=== PATIENT | female | born 1960 | race Hispanic/Latino ===

== ENCOUNTER 2018-09-02 15:49 | Inpatient (IN) | payer BC ==
[2018-09-02 17:58] LABS: BASO % 0.1 % (0.0-2.0); LYMPH # 0.6 K/uL (1.0-4.3); LYMPH % 3.6 % (20.0-40.0); MEAN CELL VOLUME 90.3 fL (81.0-99.0); MEAN CORPUSCULAR HGB CONC 34.3 g/dL (33.0-37.0); MEAN PLATELET VOLUME 10.2 fL (7.2-11.7); MONO # 0.9 K/uL (0.0-0.8); MONO % 5.6 % (0.0-10.0); NEUT # 14.3 K/uL (1.8-7.0); NEUT % 90.7 % (50.0-75.0); PLATELET COUNT 328 K/uL (130-400); RBC 3.86 Mil/uL (3.80-5.20); RED CELL DISTRIBUTION WIDTH 13.3 % (11.5-14.5); WHITE BLOOD COUNT 15.8 K/uL (4.8-10.8)
[2018-09-02] MEDS ORDERED: Sodium Chloride 0.9% 1,000 ML ONE ×2 (18:13→22:08)
[2018-09-02] MEDS: Sodium Chloride 0.9% 1,000 ML IV SCH (18:20)
[2018-09-02 18:24] LABS: LYMPHOCYTE 4 % (20-40); MONOCYTE 3 % (0-10); NEUTROPHIL 93 % (50-75); PLATELET ESTIMATE NORMAL (NORMAL); TOTAL CELLS COUNTED 100
[2018-09-02 18:35] LABS: ALB/GLOB RATIO 1.3 (1.0-2.1); ALBUMIN 4.2 g/dL (3.5-5.0); CALCIUM 9.5 mg/dl (8.6-10.4)
[2018-09-02] MEDS ORDERED: Calcium Gluconate 4.65 mEq/10 ml Inj IVP STA (18:43)
[2018-09-02] MEDS ORDERED: Sod Polystyrene Sulf 15 gm/60 ml Susp PO STA (18:43)
[2018-09-02] MEDS ORDERED: Sodium Bicarbonate (8.4%) 50 Meq Syringe IVP STA ×2 (18:43→18:47)
[2018-09-02] MEDS ORDERED: Sodium Chloride 0.9% 1,000 ML IV ONE (19:02)
[2018-09-02] MEDS ORDERED: Sodium Bicarbonate (8.4%) 50 Meq Syringe ONE (19:13)
[2018-09-02] MEDS ORDERED: Calcium Gluconate 4.65 mEq/10 ml Inj ONE (19:13)
[2018-09-02 23:14] LABS: URINE BACTERIA OCC (<OCC); URINE BILIRUBIN NEGATIVE (NEGATIVE); URINE BLOOD 2+ (NEGATIVE); URINE CLARITY Hazy (Clear); URINE COLOR Red (YELLOW); URINE GLUCOSE (UA) NORMAL (Normal); URINE LEUKOCYTE ESTERASE 2+ Leu/uL (Negative); URINE PROTEIN 3+ mg/dL (NEGATIVE); URINE UROBILINOGEN NORMAL mg/dL (0.2-1.0)
--- NOTE | 2018-09-02 23:20 | C.PDOC ---
History Of Present Illness 58 year old female presents to the ED c/o generalized weakness for the past couple of weeks. Patient reports recently losing 5-7 pounds during that time. Patient states that after eating she tends to vomit 1-2 times after. Patient de nies fever, chills, cough, diarrhea, constipation, dysuria, hematuria. Chief Complaint (Nursing): Weakness/Neurological Deficit History Per: Patient History/Exam Limitations: no limitations Onset/Duration Of Symptoms: Days Current Symptoms Are (Timing): Still Present Associated Symptoms Preceding Syncopal Episode: No Predromal Symptoms (Sudden Onset) Seizure Or Post-ictal Symptoms: None Fall Associated With With Symptoms: No Severity: None Recent travel outside of the [place]: No Additional History Per: Patient Past Medical History Reviewed: Historical Data, Nursing Documentation, Vital Signs Vital Signs: Last Vital Signs Temp 98.0 F 09/02/18 22:46 Pulse 78 09/02/18 22:46 Resp 22 09/02/18 22:46 BP 96/58 L 09/02/18 22:46 Pulse Ox 98 09/02/18 22:46 - Medical History PMH: No Chronic Diseases Surgical History: No Surg Hx - [facility] Procedures CYSTOSCOPY NEC (01/06/05) RETROGRADE PYELOGRAM (01/06/05) TU DESTRUC BLADD LES NEC (06/05/05) Family History: States: Unknown Family Hx - Social History Hx Alcohol Use: No Hx Substance Use: No Review Of Systems Constitutional: Positive for: Weakness, Weight loss. Negative for: Fever, Chills Cardiovascular: Negative for: Chest Pain, Palpitations Respiratory: Negative for: Shortness of Breath Gastrointestinal: Positive for: Vomiting. Negative for: Nausea, Abdominal Pain Skin: Negative for: Rash Neurological: Negative for: Weakness, Numbness, Headache, Dizziness Physical Exam - Physical Exam Appears: Non-toxic, No Acute Distress, Other (thin) Skin: Normal Color, Warm, Dry Head: Atraumatic, Normacephalic Eye(s): bilateral: Normal Inspection Oral Mucosa: Moist Neck: Normal ROM, Supple Chest: Symmetrical Cardiovascular: Rhythm Regular Respiratory: Normal Breath Sounds, No Rales, No Rhonchi, No Wheezing Gastrointestinal/Abdominal: Soft, No Tenderness, No Guarding, No Rebound Extremity: Normal ROM, No Tenderness, No Swelling Neurological/Psych: Oriented x3, Normal Speech, Normal Cognition Gait: Steady ED Course And Treatment - Laboratory Results Result Diagrams: 09/02/18 17:53 09/02/18 17:53 ECG: Interpreted By Me, Viewed By Me ECG Rhythm: Sinus Rhythm Interpretation Of ECG: normal axis, normal intervals Rate From EC (BPM) O2 Sat by Pulse Oximetry: 98 (On RA) Pulse Ox Interpretation: Normal - CT Scan/US CT abd/pelvis Other Rad Studies (CT/US): Read By Radiologist, Radiology Report Reviewed CT/US Interpretation: CLINICAL HISTORY: Vomiting/weakness/weight loss. TECHNIQUE: Multiple axial, coronal, sagittal CT images were obtained through the abdomen and pelvis without administration of IV contrast material. Oral contrast material was administered. COMMENTS: The liver is of uniform attenuation without mass or defect. There is no intra or extrahepatic biliary ductal dilatation. The spleen is normal. The gallbladder is within normal limits. The pancreas is of normal contour and attenuation characteristics. There is no evidence of adrenal mass. Both kidneys are markedly lobulated. The right kidney is severely atrophic. Multiple parapelvic cysts are present in the right and left kidneys. There are areas of cortical thinning and scarring noted in the left kidney. There is a 6 x 4 mm calculus noted in the lower pole of the left kidney. There is no evidence for appendicitis. There is no bowel wall thickening. No evidence for small or large bowel obstruction. There is no evidence of abdominal ascites or lymphadenopathy. There is diffuse severe bladder wall thickening consistent with cystitis measuring up to 12 mm. Diffuse bladder wall calcifications are present. This may be due to chronic bladder infections. There is single bubble of air present within the urinary bladder, please exclude recent instrumentation as this may be due to infection. There is no pelvic ascites or lymphadenopathy. Uterine calcifications are present consistent with fibroids. Images of the lung bases show no evidence of pleural or parenchymal mass. There are no pleural effusions. Scarring is seen in the right middle lobe and lingula. Small hiatal hernia is seen. The bony structure s are free of lytic or blastic lesions. IMPRESSION: 1. Both kidneys are markedly lobulated. The right kidney is severely atrophic. Multiple parapelvic cysts in the right and left kidneys. Areas of cortical thinning and scarring in the left kidney. Calculus in the lower pole of the left kidney. 2. Cystitis with diffuse bladder wall calcifications present consistent with chronic bladder infections. There is single bubble of air present within the urinary bladder, please exclude recent instrumentation as this may be due to infection. 3. Uterine calcifications are present consistent with fibroids. . Electronically signed on Sep 02, 2018 9:36:29 PM EST by: Josiah Burris M.D., CHRIS Certified By [facility] & [facility]. Fellowship Trained MRI and CT Specialist Medical Decision Making Medical Decision Making: Plan: * CT abd/pelvis * EKG * Labs * Pepcid 20 mg IVP * Sodium bicarb 50 meq * Pepcid 20 mg IVP * Zofran 4 mg IVP * Kayexalate 30 gm PO * Urine culture * UA Upon receiving potassium level, medication for hyperkalemia was ordered STAT. Spoke with Dr. Gaytan patient's PMD reviewed the case. Patient will be admitted under Dr. Hair service Patient states she is feeling much better now. Disposition - Disposition Disposition: HOSPITALIZED Disposition Time: 21:00 Condition: GUARDED - Clinical Impression Clinical Impression: Hyperkalemia, Acute on chronic renal failure, Muscle weakness - Scribe Statement The provider has reviewed the documentation as recorded by the Scribe Tate Ramos All medical record entries made by the Scribe were at my direction and personally dictated by me. I have reviewed the chart and agree that the record accurately reflects my personal performance of the history, physical exam, medical decision making, and the department course for this patient. I have also personally directed, reviewed, and agree with the discharge instructions and disposition.
[2018-09-03] MEDS ORDERED: Sodium Chloride 0.9% 1,000 ML IV SCH (01:15)
[2018-09-03] MEDS: Sodium Chloride 0.9% 1,000 ML IV SCH (05:34)
[2018-09-03 08:23] LABS: MEAN CELL VOLUME 89.2 fL (81.0-99.0); MEAN CORPUSCULAR HGB CONC 34.8 g/dL (33.0-37.0); MEAN PLATELET VOLUME 9.8 fL (7.2-11.7); RBC 3.1 Mil/uL (3.80-5.20); RED CELL DISTRIBUTION WIDTH 13.6 % (11.5-14.5); WHITE BLOOD COUNT 11.5 K/uL (4.8-10.8)
[2018-09-03 08:35] LABS: CALCIUM 8.1 mg/dl (8.6-10.4)
[2018-09-03 08:39] LABS: HEMOGLOBIN 9.6 g/dL (11.0-16.0)
[2018-09-03] MEDS: Sodium Bicarbonate 8.4% 150 MEQ in Dextrose 5% In Water 850 ML IV SCH (10:12)
--- NOTE | 2018-09-03 10:27 | US ---
Date of service: 09/03/2018 PROCEDURE: Ultrasound of the Kidneys HISTORY: jen COMPARISON: None available. TECHNIQUE: Sonogram of the kidneys. FINDINGS: RIGHT KIDNEY: Measures: 6.5 x 2.7 x 2.7 cm. Echogenic renal parenchyma. No obstructing calculus or hydronephrosis identified. 1.0 x 1.0 x 1.2 cm midpole cyst. No obstructing calculus or hydronephrosis identified. LEFT KIDNEY: Measures: 8.9 x 4.8 x 4.4 cm. Echogenic renal parenchyma. No obstructing calculus or hydronephrosis identified. 2.4 x 2.2 x 2.0 cm midpole cyst. 0.5 cm midpole calculus. 0.7 x 0.8 x 0.7 cm lower pole cyst. OTHER FINDINGS: Valdez catheter within a decompressed urinary bladder. IMPRESSION: Echogenic renal parenchyma may be seen in the setting of medical renal disease. Bilateral renal cysts as above. 0.5 cm midpole left renal calculus. Valdez catheter within a decompressed urinary bladder.
--- NOTE | 2018-09-03 11:19 | CT ---
PROCEDURE: CT Abdomen and Pelvis without Oral or IV contrast. HISTORY: vomiting with weakness/weight loss COMPARISON: Renal ultrasound performed 09/03/18 TECHNIQUE: Contiguous axial images of the abdomen and pelvis. No oral or IV contrast administered. Coronal and Sagittal reformats generated and reviewed. Radiation dose: Total exam DLP = 206.86 mGy-cm. This CT exam was performed using one or more of the following dose reduction techniques: Automated exposure control, adjustment of the mA and/or kV according to patient size, and/or use of iterative reconstruction technique. FINDINGS: There is limited evaluation of the solid organs without the administration of IV contrast. LOWER THORAX: No visible consolidation, pleural effusion, or pneumothorax. LIVER: Mild hypoattenuation adjacent to the falciform ligament may reflect focal fat. GALLBLADDER AND BILE DUCTS: Unremarkable unenhanced appearance. PANCREAS: Unremarkable unenhanced appearance. SPLEEN: Unremarkable unenhanced appearance. ADRENALS: Unremarkable unenhanced appearance. KIDNEYS AND URETERS: Markedly lobulated bilateral kidneys. Atrophic right kidney. Multiple parapelvic cysts bilaterally. Cortical thinning/scarring of the left kidney. 6 x 4 mm calculus, left lower pole. No hydronephrosis or obstructing renal calculus. BLADDER: Severe diffuse and irregular urinary bladder wall thickening. Urinary bladder wall calcifications. Focus of air within the urinary bladder. REPRODUCTIVE: Uterine calcifications consistent with degenerating fibroids. APPENDIX: The appendix is not identified. No secondary signs of acute appendicitis. BOWEL: The stomach is nondistended. Lack of oral contrast limits evaluation for bowel pathology. The bowel loops appear within normal limits of caliber without evidence of intestinal obstruction. PERITONEUM: No significant free fluid. No definite free air. LYMPH NODES: No bulky lymphadenopathy identified. VASCULATURE: Atherosclerotic calcification of the aorta. No aortic aneurysm. BONES: No acute osseous abnormality is detected. OTHER FINDINGS: None. IMPRESSION: Irregular markedly thickened urinary bladder raises suspicion for cystitis. Correlate with urinalysis. Focus of air within the urinary bladder may be due to infection or recent instrumentation. Diffuse bladder wall calcifications; correlate for history of chronic urinary bladder infections. Markedly lobulated bilateral renal contours. Severely atrophic right kidney. Multiple cysts bilateral kidneys. Regions of cortical thinning/scarring of the left kidney. Nonobstructing left lower pole calculus. No hydronephrosis. Uterine calcifications consistent with degenerating fibroids. Preliminary impression was provided by [employer]
[2018-09-03 13:59] LABS: HEMOGLOBIN 8.5 g/dL (11.0-16.0)
--- NOTE | 2018-09-03 19:09 | CP.PCM.CON ---
History of Present Illness - History of Present Illness History of Present Illness: pt is seen and examined, full consult is dictated #[id number] 1. Dominic on ckd-3 2. hyperkalemia 3. met. acidois 4. Microscopic hematuria 5. atrophic rt kidney 6. b/l renal cysts c/w ivf d5w with 150 meq nahco3 at 70 ml/hr checck urine c/s, urine for cytology may need renal scan for evaluation of rt kidney fx Past Patient History - Past Medical History & Family History Past Medical History?: Yes - Past Social History Smoking Status: Never Smoked - CARDIAC Hx Cardiac Disorders: No - PULMONARY Hx Pneumonia: Yes - NEUROLOGICAL Hx Neurological Disorder: No - HEENT Hx Sinusitis: Yes - RENAL Hx Chronic Kidney Disease: No - ENDOCRINE/METABOLIC Hx Hyperthyroidism: Yes - HEMATOLOGICAL/ONCOLOGICAL Hx Blood Disorders: No - INTEGUMENTARY Hx Dermatological Problems: No - MUSCULOSKELETAL/RHEUMATOLOGICAL Hx Arthritis: Yes Hx Falls: Yes - GASTROINTESTINAL Hx Vomiting: Yes - GENITOURINARY/GYNECOLOGICAL Hx Urinary Tract Infection: Yes - PSYCHIATRIC Hx Substance Use: No - SURGICAL HISTORY Hx Surgeries: Yes Other/Comment: Pinky Richter, 2005 - ANESTHESIA Hx Anesthesia: Yes Hx Anesthesia Reactions: No Hx Malignant Hyperthermia: No Has any member of the family had a problem w/ anesthesia?: No Meds Allergies/Adverse Reactions: Allergies Allergy/AdvReac Type Severity Reaction Status Date / Time No Known Allergies Allergy Verified 09/02/18 16:17 - Medications Medications: Current Medications Famotidine (Pepcid) 20 mg IVP DAILY [facility] Last Admin: 09/03/18 10:12 Dose: 20 mg Heparin Sodium (Porcine) (Heparin) 5,000 units SC Q8 [facility] Last Admin: 09/03/18 14:36 Dose: Not Given Ceftriaxone Sodium 1 gm/ (Sodium Chloride) 100 mls @ 100 mls/hr IVPB DAILY [facility]; Protocol Last Admin: 09/03/18 10:12 Dose: 100 mls/hr Sodium Bicarbonate 150 meq/ (Dextrose) 1,000 mls @ 70 mls/hr IV .[id number] [facility] Last Admin: 09/03/18 10:12 Dose: 70 mls/hr Results - Vital Signs Recent Vital Signs: Last Vital Signs Temp 97.9 F 09/03/18 15:20 Pulse 71 09/03/18 16:00 Resp 20 09/03/18 15:20 BP 94/61 L 09/03/18 15:20 Pulse Ox 99 09/03/18 15:20 - Labs Result Diagrams: 09/03/18 13:51 09/03/18 08:17 Labs: Laboratory Results - last 24 hr 09/02/18 09/02/18 09/03/18 18:47 22:00 02:27 WBC RBC Hgb Hct MCV MCH MCHC RDW Plt Count MPV Sodium Potassium Chloride Carbon Dioxide Anion Gap BUN Creatinine Est GFR ( Amer) Est GFR (Non-Af Amer) Random Glucose Calcium Troponin I 0.0170 Urine Color Red Urine Clarity Hazy Urine pH 9.0 Ur Specific [place] 1.017 Urine Protein 3+ H Urine Glucose (UA) Normal Urine Ketones Negative Urine Blood 2+ H Urine Nitrate Negative Urine Bilirubin Negative Urine Urobilinogen Normal Ur Leukocyte Esterase 2+ H Urine WBC (Auto) 62 H Urine RBC (Auto) 1862 H Urine Bacteria Occ H Ur Random Sodium Urine Calcium < 1.0 09/03/18 09/03/18 09/03/18 02:27 08:17 08:17 WBC 11.5 H RBC 3.10 L Hgb 9.6 L D Hct 27.7 L MCV 89.2 MCH 31.0 MCHC 34.8 RDW 13.6 Plt Count 228 D MPV 9.8 Sodium 132 Potassium 4.7 Chloride 102 Carbon Dioxide 18 L Anion Gap 16 BUN 94 H Creatinine 3.5 H Est GFR ( Amer) 16 Est GFR (Non-Af Amer) 13 Random Glucose 103 Calcium 8.1 L Troponin I Urine Color Urine Clarity Urine pH Ur Specific [place] Urine Protein Urine Glucose (UA) Urine Ketones Urine Blood Urine Nitrate Urine Bilirubin Urine Urobilinogen Ur Leukocyte Esterase Urine WBC (Auto) Urine RBC (Auto) Urine Bacteria Ur Random Sodium 73 Urine Calcium 09/03/18 13:51 WBC RBC Hgb 8.5 L Hct 25.1 L MCV MCH MCHC RDW Plt Count MPV Sodium Potassium Chloride Carbon Dioxide Anion Gap BUN Creatinine Est GFR ( Amer) Est GFR (Non-Af Amer) Random Glucose Calcium Troponin I Urine Color Urine Clarity Urine pH Ur Specific [place] Urine Protein Urine Glucose (UA) Urine Ketones Urine Blood Urine Nitrate Urine Bilirubin Urine Urobilinogen Ur Leukocyte Esterase Urine WBC (Auto) Urine RBC (Auto) Urine Bacteria Ur Random Sodium Urine Calcium
--- NOTE | 2018-09-03 20:08 | CARD ---
APPROVED REPORT Date of service: 09/02/2018 EKG Measurement Heart [id number] <Conclusion> Normal sinus rhythm Normal ECG
--- NOTE | 2018-09-03 23:53 | CP.PCM.HP ---
Past Patient History - Past Medical History & Family History Past Medical History?: Yes - Past Social History Smoking Status: Never Smoked - CARDIAC Hx Cardiac Disorders: No - PULMONARY Hx Pneumonia: Yes - NEUROLOGICAL Hx Neurological Disorder: No - HEENT Hx Sinusitis: Yes - RENAL Hx Chronic Kidney Disease: No - ENDOCRINE/METABOLIC Hx Hyperthyroidism: Yes - HEMATOLOGICAL/ONCOLOGICAL Hx Blood Disorders: No - INTEGUMENTARY Hx Dermatological Problems: No - MUSCULOSKELETAL/RHEUMATOLOGICAL Hx Arthritis: Yes Hx Falls: Yes - GASTROINTESTINAL Hx Vomiting: Yes - GENITOURINARY/GYNECOLOGICAL Hx Urinary Tract Infection: Yes - PSYCHIATRIC Hx Substance Use: No - SURGICAL HISTORY Hx Surgeries: Yes Other/Comment: Bladder Rober, 2005 - ANESTHESIA Hx Anesthesia: Yes Hx Anesthesia Reactions: No Hx Malignant Hyperthermia: No Has any member of the family had a problem w/ anesthesia?: No Meds Allergies/Adverse Reactions: Allergies Allergy/AdvReac Type Severity Reaction Status Date / Time No Known Allergies Allergy Verified 09/02/18 16:17 Results - Vital Signs Recent Vital Signs: Last Vital Signs Temp 97.9 F 09/03/18 15:20 Pulse 71 09/03/18 16:00 Resp 20 09/03/18 15:20 BP 94/61 L 09/03/18 15:20 Pulse Ox 99 09/03/18 15:20 - Labs Result Diagrams: 09/03/18 13:51 09/03/18 08:17 Labs: Laboratory Results - last 24 hr 09/03/18 09/03/18 09/03/18 02:27 02:27 08:17 WBC 11.5 H RBC 3.10 L Hgb 9.6 L D Hct 27.7 L MCV 89.2 MCH 31.0 MCHC 34.8 RDW 13.6 Plt Count 228 D MPV 9.8 Sodium Potassium Chloride Carbon Dioxide Anion Gap BUN Creatinine Est GFR ( Amer) Est GFR (Non-Af Amer) Random Glucose Calcium Ur Random Sodium 73 Urine Calcium < 1.0 09/03/18 09/03/18 08:17 13:51 WBC RBC Hgb 8.5 L Hct 25.1 L MCV MCH MCHC RDW Plt Count MPV Sodium 132 Potassium 4.7 Chloride 102 Carbon Dioxide 18 L Anion Gap 16 BUN 94 H Creatinine 3.5 H Est GFR ( Amer) 16 Est GFR (Non-Af Amer) 13 Random Glucose 103 Calcium 8.1 L Ur Random Sodium Urine Calcium
[2018-09-04] MEDS: Sodium Bicarbonate 8.4% 150 MEQ in Dextrose 5% In Water 850 ML IV SCH ×2 (03:19→16:30)
--- NOTE | 2018-09-04 05:40 | CON ---
DATE: 09/03/2018 LOCATION: The patient is located in room 657, bed B. REQUESTED BY: Garry Hair MD REASON FOR RENAL CONSULTATION: Acute renal failure, chronic kidney disease stage III, hyperkalemia, metabolic acidosis and possible UTI. HISTORY OF PRESENT ILLNESS: Mrs. Michaels is a 58-year-old elderly, very thin built female with a past medical history significant for bladder surgery long time ago, chronic kidney disease, who was admitted with chief complaints of dysuria and frequency for about 2-3 weeks and denies any fever. The patient has complaints of nausea, vomiting and decreased p.o. intake for about 1 week. Denies any abdominal pain. Denies any chest pain or palpitation. Denies any headache, dizziness. The patient has complaints of decreased p.o. intake and associated with also nausea and vomiting. PAST MEDICAL HISTORY: Significant for bladder surgery long time ago, chronic kidney disease, and questionable UTI in the past. PAST SURGICAL HISTORY: Bladder surgery, negative for hypertension, negative for diabetes, coronary artery disease, hyperlipidemia. ALLERGIES: NO KNOWN DRUG ALLERGIES. SOCIAL HISTORY: Denies any smoking, alcohol, or drugs. PERSONAL HISTORY: She is single. No children and she lives alone. FAMILY HISTORY: Both parents have long time ago and she has one sister and one brother. REVIEW OF SYSTEMS: Significant for dysuria, frequency, nausea, vomiting and decreased p.o. intake for about 1 week. All other review of systems are reviewed and are negative. PHYSICAL EXAMINATION: VITAL SIGNS: As follows: Blood pressure 94/61, pulse 76, respirations 20, temperature 97.9 and saturation 99%. Height 5 feet and weight is 105 pounds. GENERAL: Mrs. Michaels is a 58-year-old elderly very thin built female, not in acute distress. HEENT: Pupils are normal and reactive to light and accommodation. Conjunctivae pink. Sclerae are anicteric. Tongue is dry and trachea is midline. No thyroid enlargement. LUNGS: Symmetric on both sides. Bilateral breath sounds present. Clear to auscultation. CARDIOVASCULAR SYSTEM: [place] at the fifth intercostal space, midclavicular line. S1 and S2 audible. No murmur or gallop. ABDOMEN: Normal in appearance, soft, tympanic. No guarding. No rigidity. No hepatosplenomegaly. CENTRAL NERVOUS SYSTEM: The patient is alert, awake, oriented x2-3. Sensory and motor system is grossly within normal limits. Cranial nerves II-XII grossly intact. EXTREMITIES: No cyanosis, no clubbing, no edema. The patient has a Valdez catheter with cloudy urine, lot of sediment. LABORATORY DATA: Include as follows, as of 09/02/2018, WBC 15.8, hemoglobin 12 and hematocrit is 34.9, platelets 328. Sodium 124, potassium 6.3, chloride 93, CO2 of 12, BUN 103, creatinine 4.8, glucose 137, calcium 9.5. Total bilirubin 0.6, AST 22, ALT 21, alkaline phosphatase 72, total protein 7.4, albumin 4.2, troponin 0.017 and lipase is 1820. Urinalysis, color red and hazy, PH 9, specific gravity 1.017, protein 3+, glucose normal, ketones negative, blood 2+ and nitrites negative, bilirubin negative, urobilinogen normal, leukocyte esterase 2+, wbc 62, rbc 1862, bacteria occasional, urine sodium is 73, and urine calcium is less than 1. Repeat BMP as of 09/03/2018, sodium 132, potassium 4.7, chloride 102, CO2 18, BUN 94, creatinine 3.5, glucose 103, calcium 8.1. Other laboratory data, urine culture report is pending, and ultrasound of the kidneys, the right kidney measures 6.5 x 2.7 x 2.7, echogenic renal parenchyma, nonobstructing calculus or hydronephrosis identified. No obstructing calculus or hydronephrosis identified, a 1 x 1 x 1 cm mid pole cyst. Left kidney measures 8.9 x 4.8 x 4.4 cm, echogenic renal parenchyma, no obstructing calculus or hydronephrosis identified, a 2.4 x 2.2 x 2 cm mid pole cyst and also 0.5 cm mid pole calculus and 0.7 x 0.8 x 0.[address] of the abdomen and pelvis as of 09/02/2018, impression, irregularly markedly thickened urinary bladder raises suspicion for the cholecystitis correlated with urinalysis, focus of air within the urinary bladder maybe due to infection, recent instrumentation diffuse bladder wall calcifications correlate for a history of chronic urinary bladder infections, markedly lobulated bilateral renal contours, severely atrophic right kidney and multiple system bilateral kidneys, regions of cortical thinning and scarring of the left kidney, nonobstructing left lower pole calculus, no hydronephrosis. Uterine calcifications consistent with degenerative fibroids. ASSESSMENT: In summary, Mrs. Michaels is a 58-year-old elderly female with recurrent UTIs, was admitted with hematuria, dysuria, frequency, nausea, vomiting for about 1 week, decreased p.o. intake and increased BUN and creatinine with a baseline creatinine about 1.3 on 07/26/2018 with atrophic right kidney. 1. Renal failure, acute on chronic kidney disease stage III. 2. Rule out urosepsis. 3. Metabolic acidosis secondary to acute renal failure. 4. Status post hyperkalemia secondary to renal failure and metabolic acidosis. 5. Atrophic right kidney. 6. Bilateral renal cyst. 7. Nephrolithiasis on the left side. PLAN: Status post Valdez catheter placement this morning and continue IV fluids D5W with sodium bicarbonate 150 mEq at 70 cc/hour and continue monitor BMP. Continue antibiotics, Rocephin and follow up blood culture, urine culture reports. Continue strict INRs. We will follow with you. Thank you for allowing me to participate in your patient's care. Chantal Shelley MD
[2018-09-04 09:02] LABS: BASO % 0.1 % (0.0-2.0); EOS % 0.3 % (0.0-4.0); HEMOGLOBIN 9.2 g/dL (11.0-16.0); LYMPH # 0.6 K/uL (1.0-4.3); MEAN CELL VOLUME 89.5 fL (81.0-99.0); MEAN CORPUSCULAR HEMOGLOBIN 31.2 pg (27.0-31.0); MEAN CORPUSCULAR HGB CONC 34.8 g/dL (33.0-37.0); MEAN PLATELET VOLUME 9.8 fL (7.2-11.7); MONO # 0.7 K/uL (0.0-0.8); MONO % 7.3 % (0.0-10.0); NEUT # 8.2 K/uL (1.8-7.0); NEUT % 86.3 % (50.0-75.0); PLATELET COUNT 188 K/uL (130-400); RBC 2.95 Mil/uL (3.80-5.20); RED CELL DISTRIBUTION WIDTH 13.7 % (11.5-14.5); WHITE BLOOD COUNT 9.5 K/uL (4.8-10.8)
[2018-09-04 09:27] LABS: CALCIUM 7.7 mg/dl (8.6-10.4)
[2018-09-04 09:36] LABS: EOSINOPHIL 1 % (0-4); LYMPHOCYTE 12 % (20-40); MONOCYTE 7 % (0-10); NEUTROPHIL 80 % (50-75); PLATELET ESTIMATE NORMAL (NORMAL); TOTAL CELLS COUNTED 100
[2018-09-04 09:37] LABS: ANISOCYTOSIS SLIGHT; HYPOCHROMIC SLIGHT; POIKILOCYTOSIS SLIGHT
[2018-09-04 09:38] LABS: TARGET CELLS SLIGHT
[2018-09-04] MEDS ORDERED: Iohexol 240 (50 ml) ONE (15:12)
[2018-09-04] MEDS ORDERED: Lidocaine 2% Jelly (Uro-Jet) ONE (15:13)
[2018-09-04] MEDS ORDERED: Midazolam 2 MG/2 ML VIAL ONE (15:41)
[2018-09-04] MEDS ORDERED: Propofol 10 mg/ml Inj (20 ML) ONE (15:43)
[2018-09-04] MEDS ORDERED: HYDROmorphone 0.5 mg/0.5 ml ISec IVP PRN (16:16)
[2018-09-04] MEDS ORDERED: Oxycodone/Acetaminophen 5/325 mg Tab PO PRN (16:26)
--- NOTE | 2018-09-04 19:01 | CP.PCM.PN ---
Subjective - Date & Time of Evaluation Date of Evaluation: 09/04/18 Time of Evaluation: 19:01 - Subjective Subjective: pt is seen and examined, follow up consult is dictated #[id number] d/c iv nahco3 start 1/2 ns at 70 ml/hr Objective - Vital Signs/Intake and Output Vital Signs (last 24 hours): Temp Pulse Resp BP Pulse Ox 97.8 F 78 13 108/55 L 100 09/04/18 17:30 09/04/18 17:30 09/04/18 17:30 09/04/18 17:30 09/04/18 17:30 Intake and Output: 09/04/18 09/05/18 18:59 06:59 Intake Total 1460 Output Total 400 Balance 1060 - Medications Medications: Current Medications Famotidine (Pepcid) 20 mg IVP DAILY [facility] Last Admin: 09/04/18 09:21 Dose: Not Given Ceftriaxone Sodium 1 gm/ (Sodium Chloride) 100 mls @ 100 mls/hr IVPB DAILY [facility]; Protocol Last Admin: 09/04/18 09:20 Dose: 100 mls/hr Sodium Chloride (Sodium Chloride 0.45%) 1,000 mls @ 70 mls/hr IV .[id number] [facility] Stop: 09/06/18 19:01 Oxycodone/Acetaminophen (Percocet 5/325 Mg Tab) 1 tab PO Q6H PRN PRN Reason: Pain, moderate (4-7) Stop: 09/07/18 16:27 - Labs Labs: 09/04/18 08:48 09/04/18 08:48
[2018-09-04] MEDS: Sodium Chloride 0.45% 1,000 ML IV SCH (19:30)
[2018-09-04] MEDS ORDERED: Iohexol 240 (50 ml) PO ONE (20:30)
--- NOTE | 2018-09-05 00:08 | CON ---
DATE: 09/04/2018 I was called to see her because of her gross hematuria. HISTORY OF PRESENT ILLNESS: The patient is a 58-year-old white female who is bleeding since Thanksgiving continuously with some clots on and off. The patient was in [place] over 7 years ago and treated, and they told her to catheterize herself 4 times a day, which she is doing. The patient has no history of any abdominal pain, voiding frequency and urgency. No history of documented bladder tumor or workup for bladder tumor. MEDICATIONS: The patient is on antibiotic, Rocephin. ALLERGIES: NO RECENT ALLERGY EXCEPT FOR PENICILLIN. PHYSICAL EXAMINATION GENERAL: Reveals the patient in mild distress because of the bleeding. ABDOMEN: Soft. No flank tenderness. No kidney palpable. Mild suprapubic tenderness. LABORATORY DATA: The patient's recent ultrasound revealed no hydro, normal renal outline. IMPRESSION: Hematuria. PLAN: Cysto and possible bladder biopsy. Ayesha Ortiz MD
--- NOTE | 2018-09-05 01:38 | PN ---
DATE: 09/04/2018 FOLLOWUP RENAL CONSULTATION LOCATION: The patient is located in room 657, bed B. REQUESTED BY: Garry Hair MD REASON FOR FOLLOWUP: Acute renal failure, chronic kidney disease, hyperkalemia, metabolic acidosis. HISTORY OF PRESENT ILLNESS: Mrs. Michaels is a 58-year-old elderly, very thin built female with a past medical history significant for chronic kidney disease, questionable small kidney in the past and recurrent urinary tract infections and bladder surgery as per the patient long time ago, was admitted with nausea, vomiting for 1 week and dysuria, frequency for about 3 to 4 weeks, was found to have acute renal failure, BUN and creatinine more than 100/4.8 and hyperkalemia, metabolic acidosis. The patient was initially treated for hyperkalemia and started on IV fluids D5W with bicarbonate 150 mEq at 70 mL/hour. The patient is feeling much better, not in acute distress and denies any abdominal pain. No nausea, no vomiting. Tolerating p.o. fluids. No chest pain, no palpitation. No fever. No cough. PHYSICAL EXAMINATION: VITAL SIGNS: As follows: Blood pressure this evening 108/55, pulse 78, respiration 13, temperature 97.8, saturation 100%. Height 5 feet, weight is 105 pounds. GENERAL: Mrs. Michaels is a 58-year-old elderly female, thin built, not in acute distress. HEENT: Pupils are normal and reactive to light and accommodation. Conjunctivae pink. Sclerae are anicteric. Tongue is moist and trachea is midline. LUNGS: Symmetric on both sides. Bilateral breath sounds present. Clear to auscultation. CARDIOVASCULAR SYSTEM: [place] at the fifth intercostal space, midclavicular line. S1 and S2 audible. No murmur or gallop. ABDOMEN: Normal in appearance, soft, tympanitic. No guarding. No rigidity. No hepatosplenomegaly. CENTRAL NERVOUS SYSTEM: The patient is alert, awake, oriented x2-3. Sensory and motor system is grossly within normal limits. EXTREMITIES: No cyanosis, no clubbing, no edema. CURRENT MEDICATIONS: Include as follows: Rocephin 1 g daily, Pepcid 20 mg IV daily, Percocet 1 tablet p.o. every 6 hours p.r.n., and IV fluids D5W with 150 mg sodium bicarbonate at 70 mL/hour. LABORATORY DATA: Include as follows, as of 09/04/2018, WBC 9.5, hemoglobin 9.2, hematocrit is 26.4, platelets 188, neutrophils 18, lymphs 12, mono 7, and eosinophils 1. Sodium 134, potassium 3.1, chloride 97, CO2 30, BUN 65, creatinine 2.5, glucose 120, calcium is 7.7. Urine electrolytes, urine sodium 73, urine chloride 70 and urine calcium 1. Urine culture positive for gram-negative rods, identification is pending, 50,000-100,000 colony-forming units/mL. ASSESSMENT: In summary, Mrs. Michaels is a 58-year-old elderly female with chronic kidney disease, urinary tract infections, and small kidney who was admitted with dysuria, frequency, nausea, vomiting and increased blood urea nitrogen and creatinine, now urine culture positive for gram-negative rods. 1. Acute renal failure on chronic kidney disease stage 3. 2. Unilateral small kidney, atrophic right kidney. 3. Urinary tract infection. 4. Status post hyperkalemia. 5. Status post metabolic acidosis secondary to renal failure. 6. Bilateral renal cyst. 7. Nephrolithiasis. PLAN: Continue IV antibiotics and continue to follow urine culture identification and sensitivity, and we will discontinue IV sodium bicarbonate and we will start her on normal saline at 70 mL/hour. Continue to monitor BMP and check magnesium level in a.m. We will follow with you. Thank you for allowing me to participate in your patient's care. Chantal Shelley MD
--- NOTE | 2018-09-05 03:11 | PN ---
DATE: 09/04/2018 SUBJECTIVE: The patient is feeling weak, tired. She is on antibiotic. Her BUN and creatinine are coming down. She is on antibiotics, and she is tolerating medications very well. PHYSICAL EXAMINATION: VITAL SIGNS: Blood pressure 99/62, pulse 78, respiratory rate 20, and temperature 98.1. LUNGS: Clear. CARDIOVASCULAR SYSTEM: S1 and S2, regular. ABDOMEN: Soft. ASSESSMENT: 1. Neurogenic bladder. 2. Urinary tract infection. 3. Acute on chronic kidney failure. 4. Hypokalemia. PLAN: Continue current medications. Monitor the patient. Garry Hair MD
--- NOTE | 2018-09-05 05:18 | HP ---
CHIEF COMPLAINT: Generalized weakness. HISTORY OF PRESENT ILLNESS: This is a 58-year-old white female with a history of neurogenic bladder, history of 4 times a day intermittent catheterizations of the bladder at home, chronically sick, homebound, and the patient has some kidney problems. Her creatinine is unknown. She has been followed up by physician in [place], and the patient is currently being on antibiotics. According to , the patient has not been feeling well for almost a week, generalized weakness, tiredness, anorexia, malaise, fatigue, fever, chills, rigors, and body aches. She denies any cough, sore throat, or runny nose. She denies any history of joint pain or hip pain, but she has abdominal pain, constipation, nausea, vomiting. She has been vomiting 1 to 2 times a day. Along with that, had chills and rigors. She denies any history of constipation or diarrhea, but she has dysuria. She denies any hematuria or pyuria. She denies any sneezing, itchy eyes, or itchy nose. She denies any skin rash. She denies any joint pain or hip pain. She denies any history of vertigo, but she has headache, generalized weakness, and chills. PAST MEDICAL HISTORY: Neurogenic bladder with intermittent bladder catheterization, CKD. SOCIAL HISTORY: Nonsmoker, non-EtOH user. CURRENT MEDICATIONS AT HOME: Unknown medications. PHYSICAL EXAMINATION: GENERAL: An elderly female, in no acute distress, chronically sick, weak, underweight. VITAL SIGNS: Blood pressure 92/60, pulse 80, respiratory rate 20, and temperature 99.8. SKIN: Senile turgor. No bruises. No purpura. HEENT: Atraumatic, normocephalic. Positive pallor. Negative jaundice. Extraocular movements are intact. NECK: Supple. No JVD. No lymph node. No thyromegaly. CHEST WALL: Bilateral symmetrical expansion. LUNGS: Clear. CARDIOVASCULAR SYSTEM: S1 and S2, regular. ABDOMEN: Soft, nontender. Bowel sounds are positive. RECTAL: Negative. PELVIC: Has Valdez catheter with cloudy hemorrhagic urine. EXTREMITIES: No clubbing, cyanosis, or edema. CENTRAL NERVOUS SYSTEM: Awake, alert, and oriented x3. ASSESSMENT: 1. Hematuria with urinary tract infection in the setting of neurogenic bladder. 2. Neurogenic bladder. 3. Acute on chronic kidney failure. PLAN: Admit. Detailed orders written. Seen and examined. Garry Hair MD
--- NOTE | 2018-09-05 06:47 | OP ---
PROCEDURE DATE: 09/04/2018 PREOPERATIVE DIAGNOSES: Gross hematuria, urinary retention. POSTOPERATIVE DIAGNOSIS: Bladder full of necrotic material with necrotic bladder mucosa, could be bladder tumor. PROCEDURE: Cystoscopy evacuating of necrotic material, transurethral resection of bladder tumor. DESCRIPTION OF PROCEDURE: While the patient in lithotomy position, genitalia prepped and draped in sterile fashion. The patient on Rocephin. Cystoscopy done which revealed bladder full of necrotic material, clots and bleeding from lesion on the left side dome posterior wall and right lateral wall. Bleeding from bladder neck. All the necrotic material is and evacuated. After that, resectoscope sheath inserted. Resection of the necrotic material down to the mucosa and control of bleeding done. At the end of the procedure, there was multiple area in the bladder which has no mucosa except which I described before. Posterior wall clean. The right lateral wall and the left lateral wall all occupied with lesion down to the bladder neck. The tissue which is and fulgurated, sent for pathology. The necrotic material sent for pathology. I could not do a retrograde. I will order a CT scan of the abdomen and pelvis to evaluate the pelvic area and renal condition. After filling the bladder, the scope removed, #22 two-way Valdez inserted, and the patient tolerated the procedure well and transferred to the recovery room in stable condition. Ayesha Ortiz MD
[2018-09-05 07:48] LABS: CALCIUM 7.5 mg/dl (8.6-10.4)
--- NOTE | 2018-09-05 13:41 | CT ---
Date of service: 09/04/2018 PROCEDURE: CT Abdomen and Pelvis without intravenous contrast HISTORY: post op COMPARISON: None. TECHNIQUE: Without contrast.. Contrast dose: Radiation dose: Total exam DLP = 269.22 mGy-cm. This CT exam was performed using one or more of the following dose reduction techniques: Automated exposure control, adjustment of the mA and/or kV according to patient size, and/or use of iterative reconstruction technique. FINDINGS: LOWER THORAX: Unremarkable. LIVER: Unremarkable. No gross lesion or ductal dilatation. GALLBLADDER AND BILE DUCTS: Unremarkable. PANCREAS: Unremarkable. No gross lesion or ductal dilatation. SPLEEN: Unremarkable. ADRENALS: Unremarkable. No mass. KIDNEYS AND URETERS: There is a 4 x 6 mm nonobstructing stone in the lower pole of the left kidney. Atrophy of the right kidney VASCULATURE: Unremarkable. No aortic aneurysm. No aortic atherosclerotic calcification or mural plaque present. BOWEL: Unremarkable. No obstruction. No gross mural thickening. APPENDIX: Unremarkable. Normal appendix. PERITONEUM: Unremarkable. No free fluid. No free air. LYMPH NODES: Unremarkable. No enlarged lymph nodes. BLADDER: There is severe mural thickening of the bladder measuring up to 15 mm. There is a Valdez catheter in the bladder. REPRODUCTIVE: Small calcified fibroid. BONES: No acute fracture. OTHER FINDINGS: The report concurs with the preliminary [facility] report IMPRESSION: Severe mural thickening in the bladder consistent with severe cystitis. Nonobstructing 4 x 6 mm stone in the left kidney
[2018-09-05 14:06] LABS: BASO % 0.2 % (0.0-2.0); EOS # 0.3 K/uL (0.0-0.7); EOS % 3.5 % (0.0-4.0); LYMPH # 0.9 K/uL (1.0-4.3); LYMPH % 9.9 % (20.0-40.0); MEAN CORPUSCULAR HGB CONC 33.7 g/dL (33.0-37.0); MEAN PLATELET VOLUME 9.6 fL (7.2-11.7); MONO # 0.5 K/uL (0.0-0.8); NEUT # 7.1 K/uL (1.8-7.0); NEUT % 80.4 % (50.0-75.0); PLATELET COUNT 197 K/uL (130-400); RED CELL DISTRIBUTION WIDTH 13.6 % (11.5-14.5); WHITE BLOOD COUNT 8.8 K/uL (4.8-10.8)
[2018-09-05 14:07] LABS: MEAN CELL VOLUME 91.8 fL (81.0-99.0)
[2018-09-05 14:26] LABS: ANISOCYTOSIS SLIGHT; BANDS 1 % (0-2); HYPOCHROMIC SLIGHT; LYMPHOCYTE 9 % (20-40); MONOCYTE 4 % (0-10); NEUTROPHIL 86 % (50-75); PLATELET ESTIMATE NORMAL (NORMAL); POIKILOCYTOSIS SLIGHT; TOTAL CELLS COUNTED 100
[2018-09-05 14:28] LABS: TARGET CELLS SLIGHT
--- NOTE | 2018-09-05 18:32 | CP.PCM.PN ---
Subjective - Date & Time of Evaluation Date of Evaluation: 09/05/18 Time of Evaluation: 18:32 - Subjective Subjective: pt is seen and examined, follow up consult is dictated #[id number] change ivf to ns 0.9 % at 70 ml./hr Objective - Vital Signs/Intake and Output Vital Signs (last 24 hours): Temp Pulse Resp BP Pulse Ox 98.8 F 80 20 89/54 L 98 09/05/18 15:00 09/05/18 15:00 09/05/18 15:00 09/05/18 15:00 09/05/18 15:00 Intake and Output: 09/05/18 09/05/18 06:59 18:59 Intake Total 520 560 Output Total 600 600 Balance -80 -40 - Medications Medications: Current Medications Famotidine (Pepcid) 20 mg IVP DAILY [facility]IME Last Admin: 09/05/18 11:08 Dose: 20 mg Ceftriaxone Sodium 1 gm/ (Sodium Chloride) 100 mls @ 100 mls/hr IVPB DAILY [facility]IME; Protocol Last Admin: 09/05/18 11:07 Dose: 100 mls/hr Sodium Chloride (Sodium Chloride 0.45%) 1,000 mls @ 70 mls/hr IV .[id number] JAIME Stop: 09/06/18 19:01 Last Admin: 09/04/18 19:30 Dose: 70 mls/hr Oxycodone/Acetaminophen (Percocet 5/325 Mg Tab) 1 tab PO Q6H PRN PRN Reason: Pain, moderate (4-7) Stop: 09/07/18 16:27 - Labs Labs: 09/05/18 14:01 09/05/18 07:01
--- NOTE | 2018-09-05 22:26 | CP.PCM.PN ---
Subjective - Subjective Subjective: dictated Objective - Vital Signs/Intake and Output Vital Signs (last 24 hours): Temp Pulse Resp BP Pulse Ox 98.8 F 80 20 89/54 L 98 09/05/18 15:00 09/05/18 15:00 09/05/18 15:00 09/05/18 15:00 09/05/18 15:00 Intake and Output: 09/05/18 09/06/18 18:59 06:59 Intake Total 560 Output Total 600 Balance -40 - Medications Medications: Current Medications Famotidine (Pepcid) 20 mg IVP DAILY [facility] Last Admin: 09/05/18 11:08 Dose: 20 mg Ceftriaxone Sodium 1 gm/ (Sodium Chloride) 100 mls @ 100 mls/hr IVPB DAILY [facility]IME; Protocol Last Admin: 09/05/18 11:07 Dose: 100 mls/hr Sodium Chloride (Sodium Chloride 0.45%) 1,000 mls @ 70 mls/hr IV .[id number] JAIME Stop: 09/06/18 19:01 Last Admin: 09/04/18 19:30 Dose: 70 mls/hr Oxycodone/Acetaminophen (Percocet 5/325 Mg Tab) 1 tab PO Q6H PRN PRN Reason: Pain, moderate (4-7) Stop: 09/07/18 16:27 - Labs Labs: 09/05/18 14:01 09/05/18 07:01
[2018-09-06] MEDS: Sodium Chloride 0.45% 1,000 ML IV SCH (00:22)
--- NOTE | 2018-09-06 02:17 | PN ---
DATE: 09/05/2018 FOLLOWUP RENAL CONSULTATION LOCATION: The patient is located in room 657, bed B. REQUESTED BY: Garry Hair MD REASON FOR FOLLOWUP: Acute renal failure, asymmetric renal size, and urosepsis. SUBJECTIVE: Mrs. Michaels is a 58-year-old very thin-built elderly female with history of recurrent UTIs, chronic self-catheterization three to four times a day with a small right kidney, CKD 3, was admitted with dysuria, frequency for about three to four weeks, nausea, vomiting, decreased p.o. intake for about one week, and admitted with a BUN and creatinine more than 100/4.5. The patient was found to have E. coli in the urine and was started on IV antibiotics. The patient is feeling much better, not in acute distress. Denies any headache or dizziness. Denies any chest pain or palpitations. Denies any fever or cough. No abdominal pain. No nausea or vomiting. No diarrhea. The patient has a good urine output. Renal function is improving nicely. PHYSICAL EXAMINATION: VITAL SIGNS: Include as follows; blood pressure 89/54, pulse 80, respirations 20, temperature 98.8, and saturation 98%. Height 5 feet, and weight is 105 pounds. GENERAL: Mrs. Michaels is a [id number] female, thin-built, not in distress. HEENT: Pupils are normal and reactive to light and accommodation. Conjunctivae pink. Sclerae anicteric. Tongue is moist. Trachea is midline. LUNGS: Symmetric on both sides. Bilateral breath sounds present. Clear to auscultation. CVS: [place] at the fifth intercostal space in the midclavicular line. S1, S2 audible. No murmur or gallop. ABDOMEN: Normal in appearance. Soft, tympanitic. No guarding. No rigidity. No hepatosplenomegaly. 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 Sensory and motor system is grossly within normal limits. EXTREMITIES: No cyanosis, no clubbing, no edema. CURRENT MEDICATIONS: Include as follows; Rocephin 1 g daily, Pepcid 20 mg IV daily, Percocet 1 tablet every 6 hours p.r.n., and IV fluids half-normal saline at 70 mL/hour. LABORATORY DATA: Include as follows: As of 09/05/2018; WBC 8.8, hemoglobin 9, hematocrit is 26.6, and platelets 197. Sodium 134, potassium 3.6, chloride 96, CO2 33, BUN 42, creatinine 1.9, glucose is 95, and calcium 7.5. ASSESSMENT AND PLAN: In summary, Mrs. Michaels is a 58-year-old elderly female with unilateral small kidney, recurrent urinary tract infections, self-catheterizations, bilateral renal cysts, and also nephrolithiasis, was admitted with acute renal failure, nausea, vomiting, dysuria, frequency. 1. Acute renal failure and chronic kidney disease stage 3, Renal function is improving nicely with hydration. 2. Urinary tract infection secondary to Escherichia coli. 3. Dehydration. 4. Anemia secondary to renal failure. 5. Unilateral small right kidney. 6. Bilateral renal cysts. 7. Nephrolithiasis. Continue Rocephin and continue intravenous fluids. We will change intravenous fluids to normal saline at 70 mL/hour. We will follow with you. Repeat basic metabolic panel in a.m. Case discussed with Dr. Garry Hair in rounds this evening. Thank you for allowing me to participate in your patient's care. Chantal Shelley MD
--- NOTE | 2018-09-06 02:59 | PN ---
DATE: 09/05/2018 SUBJECTIVE: The patient is afebrile. Her BUN and creatinine is coming down. She feels better. No nausea, vomiting. She is on antibiotics. PHYSICAL EXAMINATION: VITAL SIGNS: Blood pressure 89/54, pulse 80, respiratory rate 20, temperature 98.8. LUNGS: Clear. CARDIOVASCULAR EXAM: S1, S2. Regular. ABDOMEN: Soft. ASSESSMENT: 1. Urinary tract infection. Complicated by Valdez catheter, intermittent catheterization with neurogenic bladder. 2. The patient has chronic kidney disease, most likely she had a unilateral functioning kidney as per Nephrology. 3. Anemia of chronic disease. 4. Hypokalemia. PLAN: Continue current medication. The patient was seen by Urology. She will need outpatient urology followup. Possible discharge. Garry Hair MD
--- NOTE | 2018-09-06 11:06 | CP.PCM.PN ---
Subjective - Date & Time of Evaluation Date of Evaluation: 09/06/18 Time of Evaluation: 11:06 - Subjective Subjective: pt is seen and examined, follow up consult is dictated# c/w ivf 1/ns at 80 ml/hr kcl 40 meq po x1 bmp, mg in am, pt /ot evaluation Objective - Vital Signs/Intake and Output Vital Signs (last 24 hours): Temp Pulse Resp BP Pulse Ox 98.3 F 71 20 149/77 97 09/06/18 08:00 09/06/18 08:00 09/06/18 08:00 09/06/18 08:00 09/06/18 08:00 Intake and Output: 09/06/18 09/06/18 06:59 18:59 Intake Total 1540 Output Total 1550 Balance -10 - Medications Medications: Current Medications Famotidine (Pepcid) 20 mg IVP DAILY [facility] Last Admin: 09/06/18 10:04 Dose: 20 mg Ceftriaxone Sodium 1 gm/ (Sodium Chloride) 100 mls @ 100 mls/hr IVPB DAILY [facility]; Protocol Last Admin: 09/06/18 10:03 Dose: 100 mls/hr Sodium Chloride (Sodium Chloride 0.45%) 1,000 mls @ 70 mls/hr IV .[id number] [facility]IME Stop: 09/06/18 19:01 Last Admin: 09/06/18 00:22 Dose: 70 mls/hr Oxycodone/Acetaminophen (Percocet 5/325 Mg Tab) 1 tab PO Q6H PRN PRN Reason: Pain, moderate (4-7) Stop: 09/07/18 16:27 - Labs Labs: 09/05/18 14:01 09/05/18 07:01
[2018-09-06 11:34] LABS: CALCIUM 7.4 mg/dl (8.6-10.4)
--- NOTE | 2018-09-06 13:33 | PN ---
DATE: 09/06/2018 SUBJECTIVE: The patient, Suyapa Michaels, is feeling better. She is afebrile. No shortness of breath. The patient's BUN and creatinine has gone down. Potassium is 3.2. PHYSICAL EXAMINATION: VITAL SIGNS: Blood pressure 149/77, pulse 71, respiratory rate 20, and temperature 98.3. LUNGS: Clear. CARDIOVASCULAR EXAM: S1 and S2. Regular. ABDOMEN: Soft. ASSESSMENT: 1. Obstructive uropathy with neurogenic bladder. 2. Urinary tract infection. 3. Chronic kidney disease. PLAN: Potassium supplementation. The patient is for possible discharge. Monitor the patient. Garry Hair MD
[2018-09-06] MEDS: Potassium Chloride 20 mEq ER Tab PO SCH ×2 (17:15→21:15)
[2018-09-06] MEDS: Sodium Chloride 0.9% 1,000 ML IV SCH (22:40)
--- NOTE | 2018-09-07 02:16 | PN ---
DATE: 09/06/2018 FOLLOWUP RENAL CONSULTATION LOCATION: The patient is located in room 657, bed B. REQUESTED BY: Garry Hair MD REASON FOR FOLLOWUP: Acute renal failure, chronic kidney disease, unilateral small kidney. HISTORY OF PRESENT ILLNESS: Mrs. Michaels is a 58-year-old elderly female with a history of recurrent UTIs, self-catheterization for long time, three to four times a day, history of bladder surgery in the past and small right kidney who was admitted with chief complaints of nausea, vomiting for about 1 week and dysuria, frequency for about 3-4 weeks prior to the admission and found to have acute renal failure and dehydration, started on IV antibiotics, Rocephin and IV fluids. Renal function is improving nicely. Denies any complaints. No chest pain. No palpitation. No fever. No cough. No abdominal pain. No nausea, vomiting, diarrhea. The patient is not ambulating since admission, complains of weakness. The patient is eager to go home and wants a walker to go home. PHYSICAL EXAMINATION: VITAL SIGNS: As follows: Blood pressure this morning 149/77, pulse 71, respiration 20, temperature 98.3, saturation 97%. Height 5 feet, weight is 105 pounds. GENERAL: Mrs. Michaels is a 58-year-old elderly, very thin built female, not in acute distress. HEENT: Pupils normal, reactive to light and accommodation. Conjunctivae pink. Sclerae anicteric. Tongue is moist. Trachea is midline. LUNGS: Symmetric on both sides. Bilateral breath sounds present. Clear to auscultation. CARDIOVASCULAR SYSTEM: [place] at the fifth intercostal space, midclavicular line. S1 and S2 audible. No murmur or gallop. ABDOMEN: Normal in appearance, soft, tympanitic. No guarding. No rigidity. No hepatosplenomegaly. CENTRAL NERVOUS SYSTEM: The patient is alert, awake, oriented x2-3. Sensory and motor system is grossly within normal limits. Cranial nerves II-XII grossly intact. EXTREMITIES: No cyanosis, no clubbing, no edema. CURRENT MEDICATIONS: Include as follows: Rocephin 1 g daily, famotidine 20 mg IV daily, and Percocet 1 tablet every 6 hours. LABORATORY DATA: Include as follows, as of 09/06/2018, sodium 133, potassium 3.2, chloride 98, CO2 of 30, BUN 21, creatinine 1.4, glucose 106, calcium 7.4. ASSESSMENT: In summary, Mrs. Michaels is a 58-year-old elderly female with unilateral small kidney of right, recurrent urinary tract infections, and self-catheterization, was admitted with dysuria, frequency, nausea, vomiting, increased blood urea nitrogen and creatinine, dehydration. 1. Acute renal failure on chronic kidney disease 3. 2. Unilateral small right kidney. 3. Urinary tract infection secondary to Escherichia coli. 4. Dehydration. 5. Status post hyperkalemia, metabolic acidosis. 6. Now, the patient has metabolic alkalosis. 7. Hypokalemia. PLAN: Continue IV fluids half-normal saline at 70 mL/hour, also KCl 40 mEq p.o. x1 dose. Repeat BMP in a.m. and consider physical therapy evaluation out of bed to chair. We will follow with you. Thank you for allowing me to participate in your patient's care. Chantal Shelley MD
[2018-09-07 07:46] LABS: CALCIUM 7.5 mg/dl (8.6-10.4)
[2018-09-07] MEDS: Sodium Chloride 0.9% 1,000 ML IV SCH (09:16)
--- NOTE | 2018-09-07 16:20 | CP.PCM.PN ---
Subjective - Date & Time of Evaluation Date of Evaluation: 09/07/18 Time of Evaluation: 16:19 - Subjective Subjective: pt is seen and examined, follow up consult is dictated #[id number] Objective - Vital Signs/Intake and Output Vital Signs (last 24 hours): Temp Pulse Resp BP Pulse Ox 98.6 F 74 20 96/58 L 90 L 09/07/18 07:00 09/07/18 07:00 09/07/18 07:00 09/07/18 07:00 09/07/18 07:00 Intake and Output: 09/07/18 09/07/18 06:59 18:59 Intake Total 1620 Output Total 1550 Balance 70 - Medications Medications: Current Medications Famotidine (Pepcid) 20 mg IVP DAILY [facility] Last Admin: 09/07/18 09:16 Dose: 20 mg Ceftriaxone Sodium 1 gm/ (Sodium Chloride) 100 mls @ 100 mls/hr IVPB DAILY JAIME; Protocol Last Admin: 09/07/18 09:15 Dose: 100 mls/hr Sodium Chloride (Sodium Chloride 0.9%) 1,000 mls @ 80 mls/hr IV .[id number] JAIME Last Admin: 09/07/18 09:16 Dose: 80 mls/hr Oxycodone/Acetaminophen (Percocet 5/325 Mg Tab) 1 tab PO Q6H PRN PRN Reason: Pain, moderate (4-7) Stop: 09/07/18 16:27 - Labs Labs: 09/05/18 14:01 09/07/18 07:04
--- NOTE | 2018-09-07 22:01 | PN ---
DATE: 09/07/2018 FOLLOWUP COVERING FOR: David Metcalf MD SUBJECTIVE: The patient denies any chest pain or shortness of breath. PHYSICAL EXAMINATION: VITAL SIGNS: Blood pressure 98/55, heart rate 80, temperature 98.1, and respirations 20. HEENT: Pale conjunctivae. CHEST: Clear. HEART: S1 and S2 are regular. EXTREMITIES: No edema. LABORATORY DATA: Today's SMA-7 is within normal limits except for an anion gap of 8 and creatinine of 1.4, calcium is 7.5. On 09/05/2018, hemoglobin and hematocrit were 9 and 26.6 respectively. White count and platelet count are within normal limits. Abdomen and pelvis CT scan revealed overall thickening in the bladder consistent with severe cystitis, nonobstructing left kidney stone. EKG revealed normal sinus rhythm. Blood culture is positive for E. coli. ASSESSMENT: 1. Escherichia coli urinary tract infection. 2. Neurogenic bladder. 3. Improved renal insufficiency. 4. Anemia. PLAN: Continue current IV Rocephin at 1 g daily and normal saline infusion at 80 mL an hour. Thang Clement MD
--- NOTE | 2018-09-08 01:07 | PN ---
DATE: 09/07/2018 FOLLOWUP RENAL CONSULTATION LOCATION: The patient is located in room 657, bed B. REQUESTED BY: Garry Hair MD REASON FOR FOLLOWUP: Acute renal failure, chronic kidney disease and urosepsis. SUBJECTIVE: Mrs. Michaels is a 58-year-old elderly female with a history of recurrent UTIs, doing self-catheterization three to four times a day for long time, chronic kidney disease and a small right kidney, was admitted with nausea, vomiting, decreased p.o. intake, dysuria and frequency. The patient was found to have UTI, on IV antibiotics. The patient is feeling much better, not in acute distress. Denies any headache or dizziness. Denies any chest pain or palpitation. Denies any fever or cough. No abdominal pain. No nausea, vomiting or diarrhea. PHYSICAL EXAMINATION VITAL SIGNS: Blood pressure 98/55, pulse 80, respirations 20, temperature 98.1, saturation 95%. Height 5 feet, weight is 105 pounds. GENERAL: Mrs. Michaels is a 58-year-old female, moderately built, moderately nourished, not in acute distress. HEENT: Pupils normal and reactive to light and accommodation. Conjunctivae pink. Sclerae anicteric. Tongue is moist. NECK: Trachea is midline. LUNGS: Symmetric on both sides. Bilateral breath sounds present. Clear to auscultation. CARDIOVASCULAR SYSTEM: [place] at the fifth intercostal space, midclavicular line. S1 and S2 audible. No murmur or gallop. ABDOMEN: Normal in appearance, soft, tympanic. No guarding, no rigidity, no hepatosplenomegaly. CENTRAL NERVOUS SYSTEM: The patient is alert, awake and oriented x3. Sensory and motor system is grossly within normal limits. Cranial nerves II through XII grossly intact. EXTREMITIES: No cyanosis, no clubbing, no edema. MEDICATIONS: Her current medications include as follows: Rocephin 1 g IV piggyback daily, famotidine 20 mg daily, IV fluids normal saline at 80 mL per hour. LABORATORY DATA: Include as follows: As of 09/07/2018, sodium 136, potassium 4.7, chloride 107, CO of 26, BUN 17, creatinine 1.4, glucose 90, calcium 7.5. Accu-Chek 111. ASSESSMENT AND PLAN: In summary, Mrs. Michaels is a 58-year-old elderly female with recurrent urinary tract infections, chronic kidney disease, on self-catheterization for possible neurogenic bladder. 1. Acute renal failure on chronic kidney disease. Renal function is improving nicely, almost back to her baseline about 1.3; now the creatinine is 1.4. 2. Urinary tract infection. Continue Rocephin. 3. Unilateral small right kidney. 4. Bilateral renal cysts. 5. Nephrolithiasis. We will continue antibiotic, Rocephin. Continue intravenous fluids and follow up basic metabolic panel. Consider discontinuing the Valdez catheter prior to the discharge. The patient can continue to do self-catheterization and also consider out of bed to chair and physical therapy evaluation. The patient is eager to go home. Thank you for allowing me to participate in your patient's care. Chantal Shelley MD
[2018-09-08] MEDS: Sodium Chloride 0.9% 1,000 ML IV SCH ×2 (12:58)
--- NOTE | 2018-09-08 17:15 | CP.PCM.PN ---
Subjective - Date & Time of Evaluation Date of Evaluation: 09/08/18 Time of Evaluation: 17:15 - Subjective Subjective: pt is seen and examined, follow up consult is dictated #[id number] Objective - Vital Signs/Intake and Output Vital Signs (last 24 hours): Temp Pulse Resp BP Pulse Ox 98.5 F 78 18 94/58 L 99 09/08/18 07:56 09/08/18 07:56 09/08/18 07:56 09/08/18 07:56 09/08/18 07:56 Intake and Output: 09/08/18 09/08/18 06:59 18:59 Intake Total 1700 Output Total 1725 550 Balance -25 -550 - Medications Medications: Current Medications Famotidine (Pepcid) 20 mg IVP DAILY [facility] Last Admin: 09/08/18 09:21 Dose: 20 mg Sodium Chloride (Sodium Chloride 0.9%) 1,000 mls @ 80 mls/hr IV .[id number] [facility] Last Admin: 09/08/18 12:58 Dose: 80 mls/hr - Labs Labs: 09/05/18 14:01 09/07/18 07:04
--- NOTE | 2018-09-08 21:36 | PN ---
DATE: 09/08/2018 COVERING FOR: Garry Hair MD SUBJECTIVE: The patient denies any chest pain or shortness of breath. She denies any diarrhea, but she has frequent bowel movements. PHYSICAL EXAMINATION: VITAL SIGNS: Blood pressure 94/58, heart rate 78, temperature 98.5, and respirations 18. HEENT: Pale conjunctivae. CHEST: Clear. HEART: S1 and S2, regular. EXTREMITIES: No edema. ASSESSMENT: 1. Escherichia coli urinary tract infection. 2. Neurogenic bladder. 3. Improved renal insufficiency. 4. Anemia. PLAN: Continue current normal saline at 80 mL an hour. Continue IV Pepcid 20 mg daily. Thang Clement MD
--- NOTE | 2018-09-09 01:14 | PN ---
DATE: 09/08/2018 FOLLOWUP RENAL CONSULTATION LOCATION: The patient is located in room 657, bed B. REQUESTED BY: Garry Hair MD HISTORY OF PRESENT ILLNESS: Mrs. Michaels is a 58-year-old elderly female with a past medical history significant for chronic kidney disease, right kidney is small, recurrent UTIs and self-catheterization for the last 4-5 years who was admitted with chief complaints of dysuria, frequency for about 2-3 weeks prior to the admission, nausea, vomiting, decreased p.o. intake and dehydration for about 1 week and found to have acute renal failure and dehydration. The patient was started on IV antibiotics for possible UTI, found to have E. coli sensitive to Rocephin. The patient is feeling much better. Denies any headache, dizziness. Denies any chest pain or palpitation. Denies any fever or cough. No abdominal pain. No nausea, vomiting, diarrhea. Valdez catheter was discontinued this evening, and the patient is trying to void without a Valdez catheter. No complaints. PHYSICAL EXAMINATION: VITAL SIGNS: As follows: Blood pressure 94/58, pulse 78, respirations 18, temperature 98.5, saturation 99%. Height 5 feet, weight is 105 pounds. GENERAL: Mrs. Michaels is a 58-year-old female, thin-built, not in distress. HEENT: Pupils normal, reactive to light and accommodation. Conjunctivae pink. Sclerae anicteric. Tongue is moist. Trachea is midline. LUNGS: Symmetric on both sides. Bilateral breath sounds present. Clear to auscultation. CARDIOVASCULAR SYSTEM: [place] at the fifth intercostal space, midclavicular line. S1 and S2 audible. No murmur or gallop. ABDOMEN: Normal in appearance, soft, tympanitic. No guarding. No rigidity. No hepatosplenomegaly. CENTRAL NERVOUS SYSTEM: The patient is alert, awake, oriented x3. Nonfocal neuro examination. Cranial nerves II-XII grossly intact. Sensory and motor system is within normal limits. EXTREMITIES: No cyanosis, no clubbing, no edema. CURRENT MEDICATIONS: Include as follows: Pepcid 20 mg p.o. daily and IV fluids 80 mL/hour. LABORATORY DATA: Include, as of 09/07/2018, sodium 136, potassium 4.7, chloride 107, CO2 is 26, BUN 17, creatinine 1.4, glucose 90, calcium 7.5. Accu-Cheks 111. ASSESSMENT AND PLAN: In summary, Mrs. Michaels is a 58-year-old elderly female with a history of recurrent urinary tract infections on self-catheterization three to four times a day, was admitted with urinary tract infection, nausea, vomiting, and renal failure. 1. [id number] kidney disease stage 3, renal function improved, almost back to her baseline, about 1.3 on 07/26/2018. Continue IV hydration. 2. Unilateral small kidney in right most likely secondary to chronic infections. 3. Bilateral renal cysts. 4. Nephrolithiasis on the left side. The Valdez catheter was discontinued this evening and the patient is trying to void this evening, and continue to monitor. The patient is eager to go home. I discussed with the patient's brother at bedside. Thank you for allowing me to participate in your patient's care. Chantal Shelley MD
--- NOTE | 2018-09-09 07:37 | PN ---
DATE: 09/06/2018 The patient's creatinine dropped from 3.5 today to 1.4. Cytology from the bladder, all necrotic tissue with mucosa slough because of the infection and the intermittent catheterization and trauma. Bladder was full of necrotic material, which now removed with the cystoscopy and the urine now clear. Patient grew E. Coli, and she is sensitive to Rocephin. The cytology is negative. My plan is to remove the Valdez in a.m. Continue the antibiotic and discharge her after that on Ceftin to follow up with her urologist. Ayesha Ortiz MD
[2018-09-09 08:08] VITALS: BP 113/67; PULSE 88; RESP 18; TEMP 98.1; O2SAT 100
[2018-09-09] MEDS: Sodium Chloride 0.9% 1,000 ML IV SCH (12:31)
--- NOTE | 2018-09-09 12:48 | CP.PCM.PN ---
Subjective - Date & Time of Evaluation Date of Evaluation: 09/09/18 Time of Evaluation: 12:47 - Subjective Subjective: pt is seen and examined, follow up consult is dictated #[id number] Objective - Vital Signs/Intake and Output Vital Signs (last 24 hours): Temp Pulse Resp BP Pulse Ox 98.1 F 88 18 113/67 100 09/09/18 07:25 09/09/18 07:25 09/09/18 07:25 09/09/18 07:25 09/09/18 07:25 Intake and Output: 09/09/18 09/09/18 06:59 18:59 Intake Total 1670 Output Total 800 Balance 870 - Medications Medications: Current Medications Famotidine (Pepcid) 20 mg IVP DAILY [facility] Last Admin: 09/09/18 10:37 Dose: 20 mg Sodium Chloride (Sodium Chloride 0.9%) 1,000 mls @ 80 mls/hr IV .[id number] [facility] Last Admin: 09/09/18 12:31 Dose: Not Given - Labs Labs: 09/05/18 14:01 09/07/18 07:04
--- NOTE | 2018-09-09 15:46 | CP.PCM.PN ---
Subjective - Date & Time of Evaluation Date of Evaluation: 09/09/18 Time of Evaluation: 11:00 - Subjective Subjective: alert, awake, no dysuria or bleeding, NAD. Objective - Vital Signs/Intake and Output Vital Signs (last 24 hours): Temp Pulse Resp BP Pulse Ox 98.1 F 88 18 113/67 100 09/09/18 07:25 09/09/18 07:25 09/09/18 07:25 09/09/18 07:25 09/09/18 07:25 Intake and Output: 09/09/18 09/09/18 06:59 18:59 Intake Total 1670 Output Total 800 Balance 870 - Labs Labs: 09/05/18 14:01 09/07/18 07:04 Assessment and Plan - Assessment and Plan (Free Text) Assessment: 58 year old female admitted with hyperkalemia, chronic renal failure, alert, oriented, denies any pain or dysuria. Able to void, no dysuria. She was cleared by DR Ortiz for discharge home on oral antibiotics. Discussed with DR Hair, plan to discharge on oral antibiotics. Advised to follow up with PMD in 1 week and with as advised.
--- NOTE | 2018-09-10 03:01 | PN ---
DATE: 09/09/2018 FOLLOWUP RENAL CONSULTATION LOCATION: The patient is located in room 657, bed B. REQUESTED BY: Garry Hair MD REASON FOR FOLLOWUP: Acute renal failure, chronic kidney disease, UTI. HISTORY OF PRESENT ILLNESS: Mrs. Michaels is a 58-year-old elderly, thin built female with a history of recurrent UTI, on self-catheterization for the last 4-5 years as per the patient's brother and also chronic kidney disease with unilateral small kidney, who was admitted initially with dysuria, frequency for 3-4 weeks and nausea, vomiting and decreased p.o. intake for about 1 week to 10 days, and the patient was initially found to have acute renal failure, hyperkalemia, metabolic acidosis and also dehydration. Started on Rocephin and also IV fluids with bicarbonate drip. Her serum sodium gradually improved and also metabolic acidosis was corrected and hyperkalemia was corrected. The patient was found to have E. coli sensitive to Rocephin. The patient is not in acute distress. Denies any headache, dizziness. Denies any chest pain or palpitation. Denies any fever or cough. No abdominal pain. No nausea, no vomiting, diarrhea. PHYSICAL EXAMINATION: VITAL SIGNS: As follows, blood pressure 113/67, pulse 88, respirations 18, temperature 98.1, saturation 100%. Height 5 feet and weight is 105 pounds. GENERAL: Mrs. Michaels is a 58-year-old elderly female, thin built, not in distress. HEENT: Pupils normal, reactive to light and accommodation. Conjunctivae pink. Sclerae anicteric. Tongue is moist. Trachea is midline. LUNGS: Symmetric on both sides. Bilateral breath sounds present. Clear to auscultation. CARDIOVASCULAR SYSTEM: [place] at the fifth intercostal space, midclavicular line. S1 and S2 audible. No murmur or gallop. ABDOMEN: Normal in appearance, soft, tympanitic. No guarding. No rigidity. No hepatosplenomegaly. CENTRAL NERVOUS SYSTEM: The patient is alert, awake, oriented x3. Sensory and motor system is within normal limits. EXTREMITIES: No cyanosis, no clubbing, no edema. CURRENT MEDICATIONS: Include as follows, cefuroxime 500 mg p.o. b.i.d. LABORATORY DATA: No new labs are available for today, and as of 09/05/2018, BUN and creatinine 17/1.4, glucose 90, calcium 7.5, sodium 136, potassium 4.7, chloride 107, CO2 of 26. ASSESSMENT AND PLAN: In summary, Mrs. Michaels is a 58-year-old elderly female with a history of recurrent urinary tract infection, on self-catheterization and also chronic kidney disease stage III, and unilateral small right kidney, is being treated for urinary tract infection and acute renal failure. 1. Status post acute renal failure on chronic kidney disease. Renal function improved nicely with hydration, creatinine now 1.4, the last one almost back to her baseline. 2. Urinary tract infection. 3. Unilateral small right kidney, etiology is not clear, cannot rule out secondary to recurrent urinary tract infections versus renovascular disease, doubt renovascular disease as the patient does not have any hypertension at this time. The patient can be discharged and follow up with Urology as an outpatient and primary medical doctor. Thank you for allowing me to participate in your patient's care. Chantal Shelley MD
--- NOTE | 2018-09-18 00:23 | CP.PCM.DIS ---
Provider - Provider Date of Admission: 09/02/18 22:01 Attending physician: Garry Hair MD Consults: 09/03/18 01:11 Nephrology Consult Routine Comment: Consulting Provider: Chantal Shelley Consulting Physician: hCantal Shelley Reason for Consult: jen 09/03/18 14:50 Urology Consult Routine Comment: Consulting Provider: Ayesha Ortiz Consulting Physician: Ayesha Ortiz Reason for Consult: hematuria Hospital Course - Lab Results Lab Results: Micro Results 09/02/18 22:00 Urine Urine Culture - Final Escherichia Coli Most Recent Lab Values WBC 8.8 K/uL (4.8-10.8) 09/05/18 14:01 RBC 2.90 Mil/uL (3.80-5.20) L 09/05/18 14:01 Hgb 9.0 g/dL (11.0-16.0) L 09/05/18 14:01 Hct 26.6 % (34.0-47.0) L 09/05/18 14:01 MCV 91.8 fL (81.0-99.0) D 09/05/18 14:01 MCH 31.0 pg (27.0-31.0) 09/05/18 14:01 MCHC 33.7 g/dL (33.0-37.0) 09/05/18 14:01 RDW 13.6 % (11.5-14.5) 09/05/18 14:01 Plt Count 197 K/uL (130-400) 09/05/18 14:01 MPV 9.6 fL (7.2-11.7) 09/05/18 14:01 Neut % (Auto) 80.4 % (50.0-75.0) H 09/05/18 14:01 Lymph % (Auto) 9.9 % (20.0-40.0) L 09/05/18 14:01 [place] % (Auto) 6.0 % (0.0-10.0) 09/05/18 14:01 Eos % (Auto) 3.5 % (0.0-4.0) 09/05/18 14:01 Baso % (Auto) 0.2 % (0.0-2.0) 09/05/18 14:01 Neut # (Auto) 7.1 K/uL (1.8-7.0) H 09/05/18 14:01 Lymph # (Auto) 0.9 K/uL (1.0-4.3) L 09/05/18 14:01 [place] # (Auto) 0.5 K/uL (0.0-0.8) 09/05/18 14:01 Eos # (Auto) 0.3 K/uL (0.0-0.7) 09/05/18 14:01 Baso # (Auto) 0.0 K/uL (0.0-0.2) 09/05/18 14:01 Neutrophils % (Manual) 86 % (50-75) H 09/05/18 14:01 Band Neutrophils % 1 % (0-2) 09/05/18 14:01 Lymphocytes % (Manual) 9 % (20-40) L 09/05/18 14:01 Monocytes % (Manual) 4 % (0-10) 09/05/18 14:01 Eosinophils % (Manual) 1 % (0-4) 09/04/18 08:48 Platelet Estimate Normal (NORMAL) 09/05/18 14:01 RBC Morphology Normal 09/02/18 17:53 Hypochromasia (manual) Slight 09/05/18 14:01 Poikilocytosis (manual Slight 09/05/18 14:01 Anisocytosis (manual) Slight 09/05/18 14:01 Target Cells Slight 09/05/18 14:01 Sodium 136 mmol/L (132-148) 09/07/18 07:04 Potassium 4.7 mmol/L (3.6-5.2) 09/07/18 07:04 Chloride 107 mmol/L (98-107) 09/07/18 07:04 Carbon Dioxide 26 mmol/L (22-30) 09/07/18 07:04 Anion Gap 8 (10-20) L 09/07/18 07:04 BUN 17 mg/dL (7-17) 09/07/18 07:04 Creatinine 1.4 mg/dL (0.7-1.2) H 09/07/18 07:04 Est GFR ( Amer) 46 09/07/18 07:04 Est GFR (Non-Af Amer) 38 09/07/18 07:04 POC Glucose (mg/dL) 111 mg/dL (65-110) H 09/07/18 21:19 Random Glucose 90 mg/dL (65-105) 09/07/18 07:04 Calcium 7.5 mg/dl (8.6-10.4) L 09/07/18 07:04 Total Bilirubin 0.6 mg/dL (0.2-1.3) 09/02/18 17:53 AST 22 U/L (14-36) 09/02/18 17:53 ALT 21 U/L (9-52) 09/02/18 17:53 Alkaline Phosphatase 72 U/L (38-126) 09/02/18 17:53 Troponin I 0.0170 ng/mL (0.00-0.120) 09/02/18 18:47 Total Protein 7.4 g/dL (6.3-8.3) 09/02/18 17:53 Albumin 4.2 g/dL (3.5-5.0) 09/02/18 17:53 Globulin 3.2 gm/dL (2.2-3.9) 09/02/18 17:53 Albumin/Globulin Ratio 1.3 (1.0-2.1) 09/02/18 17:53 Lipase 1820 U/L (23-300) H 09/02/18 17:53 Urine Color Red (YELLOW) 09/02/18 22:00 Urine Clarity Hazy (Clear) 09/02/18 22:00 Urine pH 9.0 (5.0-8.0) 09/02/18 22:00 Ur Specific [place] 1.017 (1.003-1.030) 09/02/18 22:00 Urine Protein 3+ mg/dL (NEGATIVE) H 09/02/18 22:00 Urine Glucose (UA) Normal mg/dL (Normal) 09/02/18 22:00 Urine Ketones Negative mg/dL (NEGATIVE) 09/02/18 22:00 Urine Blood 2+ (NEGATIVE) H 09/02/18 22:00 Urine Nitrate Negative (NEGATIVE) 09/02/18 22:00 Urine Bilirubin Negative (NEGATIVE) 09/02/18 22:00 Urine Urobilinogen Normal mg/dL (0.2-1.0) 09/02/18 22:00 Ur Leukocyte Esterase 2+ Yany/uL (Negative) H 09/02/18 22:00 Urine WBC (Auto) 62 /hpf (0-5) H 09/02/18 22:00 Urine RBC (Auto) 1862 /hpf (0-3) H 09/02/18 22:00 Urine Bacteria Occ (<OCC) H 09/02/18 22:00 Ur Random Sodium 73 mmol/L 09/03/18 02:27 Urine Chloride 70 mmol/L (32-290) 09/03/18 02:27 Urine Calcium < 1.0 mg/dL 09/03/18 02:27 Discharge Plan - Discharge Medications Prescriptions: Cefuroxime Axetil [Cefuroxime] 500 mg PO BID #20 tablet - Follow Up Plan Condition: GUARDED Disposition: HOME/ ROUTINE Instructions: Hyperkalemia (DC), Kidney Disease Diet (For People Not on Dialysis), Acute Kidney Failure (DC), Cefuroxime Additional Instructions: FOLLOW UP WITH DR Ortiz as advised follow up with PMD in 1week ceftin 500mg po bid #20 Referrals: Garry Hair MD [Staff Provider] - Ayesha Ortiz MD [Staff Provider] -
--- NOTE | 2018-09-18 07:27 | DS ---
DISCHARGE DIAGNOSES: 1. End-stage renal disease with metabolic acidosis and dehydration. 2. Hypoglycemia. 3. Hypertension. HISTORY OF PRESENT ILLNESS: This is a 58-year-old female with multiple medical problems. She has CKD. She stopped dialysis on her own, and she came in with weakness, dizziness, inability to move around, near syncope, generalized aches and pain, weight loss of 5 to 7 pounds in the last few days, vomiting one to two times everyday. She denied any fever, chills, or rigor. Upon hospitalization, blood pressure was 96/58, pulse 78, respiratory rate 22, temperature 98. The patient was admitted to the floor. She had UTI with E. coli, and she was started on antibiotics. WBC was 15.8, hemoglobin 12, hematocrit 34.9, platelets 328. Sodium 124, potassium 6.3, chloride 93, bicarb 12, BUN 103, creatinine 4.8, glucose 137. The patient was given IV fluids D10, hemodialysis. PermCath was placed by IR, and subsequently, the patient was stabilized. The patient was then discharged with outpatient followup. CONDITION UPON DISCHARGE: Stable. DISCHARGE PLAN: The patient will be followed up by her information systems auditor. Garry Hair MD
== END 2018-09-09 13:21 | disposition home or self-care (01) | DRG 654 ==
LOC: C.ER 15:49 → C.6T 22:01
PROVIDERS: ADMIT Internal Medicine; ATTEND Internal Medicine
PROC: 0TCB8ZZ Extirpation of Matter from Bladder, Via Natural or Artificial Opening Endoscopic (ICD-10-PCS; 2018-09-04)
PROC: BT14ZZZ Fluoroscopy of Kidneys, Ureters and Bladder (ICD-10-PCS; 2018-09-04)
PROC: 0TTB8ZZ Resection of Bladder, Via Natural or Artificial Opening Endoscopic (ICD-10-PCS; principal; 2018-09-04 10:45)
DX: N17.9 Acute kidney failure, unspecified (principal); N18.6 End stage renal disease; E87.4 Mixed disorder of acid-base balance; N39.0 Urinary tract infection, site not specified; I12.0 Hypertensive chronic kidney disease with stage 5 chronic kidney disease or end stage renal disease; D49.4 Neoplasm of unspecified behavior of bladder; D63.1 Anemia in chronic kidney disease; R31.29 Other microscopic hematuria; B96.20 Unspecified Escherichia coli [E. coli] as the cause of diseases classified elsewhere; E86.0 Dehydration; E87.5 Hyperkalemia; E87.6 Hypokalemia; N31.9 Neuromuscular dysfunction of bladder, unspecified; N20.0 Calculus of kidney; N28.1 Cyst of kidney, acquired; E16.2 Hypoglycemia, unspecified; Z87.01 Personal history of pneumonia (recurrent); Z87.440 Personal history of urinary (tract) infections